=== PATIENT | male | born 1935 | race Caucasian/White ===

== ENCOUNTER → 2017-08-18 | Outpatient (CLI) | payer OTHER, MEDICARE | LOC: FIMAGING 07:34 | PROVIDERS: ATTEND Internal Medicine Cardiovascular Disease | DX: I65.23 Occlusion and stenosis of bilateral carotid arteries (principal) ==

== ENCOUNTER → 2017-10-05 | Outpatient (CLI) | payer OTHER, MEDICARE | LOC: FIMAGING 10:05 | PROVIDERS: ATTEND Nurse Practitioner Adult Health | DX: R10.10 Upper abdominal pain, unspecified (principal) ==

== ENCOUNTER → 2017-12-26 | Outpatient (CLI) | payer OTHER, MEDICARE | LOC: SBRMNEURO 20:00 | PROVIDERS: ATTEND Internal Medicine Sleep Medicine | DX: G47.31 Primary central sleep apnea (principal); G47.33 Obstructive sleep apnea (adult) (pediatric); G47.36 Sleep related hypoventilation in conditions classified elsewhere ==

== ENCOUNTER → 2018-01-09 | Outpatient (CLI) | payer OTHER, MEDICARE | LOC: FCPNEURO 21:00 | PROVIDERS: ATTEND Internal Medicine Sleep Medicine | DX: G47.31 Primary central sleep apnea (principal); G47.33 Obstructive sleep apnea (adult) (pediatric); G47.61 Periodic limb movement disorder ==

== ENCOUNTER → 2018-08-18 | Outpatient (CLI) | payer OTHER, MEDICARE | LOC: FIMAGING 13:05 | PROVIDERS: ATTEND Internal Medicine | DX: I65.23 Occlusion and stenosis of bilateral carotid arteries (principal) ==

== ENCOUNTER → 2018-09-21 | Outpatient (CLI) | payer OTHER, MEDICARE | LOC: BMCIMAGING 12:42 | PROVIDERS: ATTEND Internal Medicine | DX: N32.89 Other specified disorders of bladder (principal); N40.1 Benign prostatic hyperplasia with lower urinary tract symptoms; R39.15 Urgency of urination; R35.0 Frequency of micturition ==